=== PATIENT | female | born 1985 | race Caucasian/White ===

== ENCOUNTER 2024-08-14 14:54 | Inpatient (IN) | payer OTHER, SELFPAY ==
--- NOTE | 2024-08-14 14:58 | ED.GENADULT ---
HPI - General Adult General Chief complaint: General Medical Stated complaint: Reaction to new meds Time Seen by Provider: 08/14/24 18:10 Source: patient Mode of arrival: ambulatory Limitations: no limitations History of Present Illness ED Provider: Dr. Jluisa Martinez HPI narrative: Patient comes to the emergency room complaining of worsening anxiety and depression. Patient states that she was being weaned of venlafaxine. Patient states that the last week she was supposed to be taking venlafaxine 25 mg every other day. However, patient kept taking it every day and stopped it abruptly. Patient states that her anxiety and depression have gotten much worse since then. Patient denies SI or HI. However, patient states that she wants to feel better, patient crying. Patient denies hurting herself in any way before coming to the hospital. Related Data Home Medications ?Medication ?Instructions ?Recorded ?Confirmed buspirone 10 mg tablet 20 mg PO TID 08/14/24 08/14/24 clonazepam 0.5 mg tablet 0.5 mg PO BID 08/14/24 08/14/24 lurasidone 20 mg tablet 20 mg PO QPM 08/14/24 08/14/24 Allergies Allergy/AdvReac Type Severity Reaction Status Date / Time doxycycline Allergy Vomiting Verified 08/14/24 15:04 Review of Systems Review of Systems: Constitutional : No Weight loss, No Fever, No Chills, No Night Sweats, No Fatigue, No Malaise ENT/Mouth : No Hearing loss, No Ear Pain, No Nasal Congestion, No Sinus Pain, No Hoarseness, No sore throat, No Rhinorrhea, No Swallowing Difficulty Eyes: No Eye Pain, No Swelling, No Redness, No Foreign Body, No Discharge, No Vision Changes Cardiovascular : No Chest Pain, No SOB, No Dyspnea on Exertion, No Orthopnea, No Edema, No Palpitations Respiratory : No Cough, No Sputum, No Wheezing, No Smoke Exposure, No Dyspnea Gastrointestinal : No Nausea, No Vomiting, No Diarrhea, No Constipation, No abdominal Pain, No Hematochezia, No Melena Genitourinary : no irregular bleeding, No Dysuria, No Urinary Frequency, No Hematuria, No Urinary Incontinence, No Urgency, No Flank Pain, No Urinary Flow Changes, No Hesitancy Musculoskeletal : No joint pain, No Myalgias, No Joint Swelling Skin : No Skin Lesions, No rash Neuro : No Weakness, No Numbness, No Paresthesias, No Loss of Consciousness, No Dizziness, No Headache Psych : Complaining of anxiety and depression No SI/HI/AH/VH, No Social Issues, Heme/Lymph: No Bruising, No Bleeding,No Lymphadenopathy Endocrine : No Polyuria, No Polydipsia, No Temperature Intolerance [facility] Past Medical History Medical History (Updated 08/14/24 @ 20:17 by Julisa Martinez MD) Anxiety and depression Social History Social History Smoked in Last 30 Days: No Use of substances other than those prescribed or required for medical reasons: No Advance Directives: No Advance Directives Information Provided: Yes Do you have a plan to hurt others: No Plan Patient : No Physical Exam ED Vital Signs: Vital Signs - 24 hr 08/14/24 14:59 08/14/24 18:15 Temperature 97.9 F Pulse Rate 101 H 121 H Respiratory Rate 20 19 Blood Pressure 194/119 H 145/104 H Pulse Oximetry 100 98 Oxygen Delivery Method Room Air Room Air BMI result Body Mass Index 48.5 Const Other: Appearance: Alert. Oriented X3. No acute distress. Eyes: Pupils equal, round and reactive to light. ENT: Pharynx normal. Neck: Normal inspection. Neck supple. No lymph nodes noted. No crepitus CVS: Normal heart rate and rhythm. Pulses normal. Normal S1 and S2 Respiratory: No respiratory distress. Breath sounds normal. No Wheezing. No rales Abdomen: Soft and nontender. No rigidity. No distention. Skin: Skin warm and dry. Normal skin color. Normal skin turgor. Extremities: No lower extremity edema. No Lacerations. No Rash Neuro: Oriented X 3. No motor deficit. No sensory deficit. Moving all extremities. No slurred speech. CN 2 through 12 grossly intact Psych: calm, cooperative, cheerful Course Course Course Narrative: This is a rapid medical exam performed by Bhavin Cross NP: Additional HPI, ROS, PE not included below will be deferred to primary provider. Patient is a 39-year- old female presenting to the ED stating that she has been getting weaned off of venlafaxine recently. Then a new doctor took her completely off the venlafaxine and she has been feeling terrible. She feels anxious, spacey, dizzy, has been having nightmares, panic attacks, nausea. Denies suicidal ideation or homicidal ideation. Plan: med clearance, then CARE team eval Medical Decision Making Medical Decision Making [facility] Narrative: My interpretation of labs: No significant abnormality patient's hematology and chemistry, UA negative for UTI, hCG negative, toxicology negative for drugs. Care team evaluated the patient, patient is an inpatient bed search. Patient agrees with plan. Differential Diagnosis Differential Diagnoses: The differential diagnosis associated with the presentation includes (Anxiety, depression) Admission/Observation Consideration of admission/observation: Escalation of care including admission/observation considered (Patient is inpatient bed search) Lab Data [facility] Lab Attestation statement: I reviewed the patient's lab results. 08/14/24 17:32 08/14/24 17:32 Labs: Lab Results 08/14/24 Range/Units 17:32 WBC 9.5 (4.8-10.8) X10*3/uL RBC 4.82 (4.20-5.50) X10*6/uL Hgb 11.5 L (12.0-16.0) g/dl Hct 36.3 L (37.0-47.0) % MCV 75.3 L (80.0-98.0) fL MCH 23.9 L (27.0-33.0) pg MCHC 31.7 (31.0-35.0) g/dl RDW 20.1 H (11.0-16.0) % Plt Count 323 (160-400) X10*3/uL MPV 8.9 L (9.4-12.3) fL Immature Gran % (Auto) 0.3 (0.0-0.4) % Neut % (Auto) 63.9 (45-73) % Lymph % (Auto) 27.1 (20-40) % [place] % (Auto) 5.6 (2-11) % Eos % (Auto) 2.0 (0-4) % Baso % (Auto) 1.1 (0-2) % Lymph # (Auto) 2.6 (1.2-4.9) X10*3/uL [place] # (Auto) 0.5 (0.1-1.2) X10*3/uL Eos # (Auto) 0.2 (0.0-0.4) X10*3/uL Baso # (Auto) 0.1 (0.0-0.2) X10*3/uL Abs Immat Gran (auto) 0.03 (0.00-0.03) X10*3/uL Absolute Neuts (auto) 6.1 (2.0-8.3) x10*3/uL Absolute Nucleated RBC 0.000 (0.0-0.012) X10*3/uL Nucleated RBC % (auto) 0.0 (0.0-0.2) /100WBC Sodium 139 (135-145) mmol/L Potassium 4.1 (3.3-5.1) mmol/L Chloride 107 (96-108) mmol/L Carbon Dioxide 24 (22-29) mmol/L Anion Gap 12 (12-20) BUN 10 (9-16) mg/dL Creatinine 0.76 (0.5-1.4) mg/dL Estim Creat Clear Calc 115.8 Estimated GFR > 60 Random Glucose 115 (60-115) mg/dL Calcium 8.7 (8.4-10.2) mg/dL Total Bilirubin 0.4 (0.0-1.0) mg/dL AST 26 (5-31) U/L ALT 40 H (0-31) U/L Alkaline Phosphatase 74 (39-117) U/L Total Protein 7.6 (6.5-8.0) g/dL Albumin 4.3 (3.5-5.0) g/dL Beta HCG, Quant < 2 mIU/mL Urine Color Yellow Urine Appearance Clear Urine pH 5.5 (5.0-9.0) Ur Specific [place] 1.020 (1.005-1.025) Urine Protein Negative (Neg-Trace) mg/dL Urine Glucose (UA) Negative (Negative) mg/dL Urine Ketones Negative (Negative) mg/dL Urine Blood Negative (Negative) Urine Nitrite Negative (Negative) Ur Leukocyte Esterase Negative (Negative) Urine Opiates Screen Not Detected (Not Detect) Ur Buprenorphine Scrn Not Detected (Not Detect) ng/mL Ur Oxycodone Screen Not Detected (Not Detect) ng/mL Urine Methadone Screen Not Detected (Not Detect) ng/mL Urine Fentanyl Screen Not Detected (Not Detect) Ur Barbiturates Screen Not Detected (Not Detect) Ur Phencyclidine Scrn Not Detected (Not Detect) Ur Amphetamines Screen Not Detected (Not Detect) U Benzodiazepines Scrn Not Detected (Not Detect) Urine Cocaine Screen Not Detected (Not Detect) U Marijuana (THC) Screen Not Detected (Not Detect) Ethyl Alcohol < 10 mg/dL Critical Care Time Critical Care Time Critical Care Time: Yes Total Critical Care Time: 35 Attestation: I have personally provided critical care time. Time includes review of lab data, radiology results, discussion with consultants, and monitoring for potential decompensation. Intervention performed as documented. Discharge Plan Discharge Clinical Impression: Anxiety and depression Patient Disposition: Still a Patient Prescriptions: No Action clonazepam 0.5 mg tablet 0.5 mg PO BID buspirone 10 mg tablet 20 mg PO TID lurasidone 20 mg tablet 20 mg PO QPM Print Language: Faroese
[2024-08-14 14:59] VITALS: BP 194/119; PULSE 101; RESP 20; TEMP 36.6; O2SAT 100; BMI 48.5
--- NOTE | 2024-08-14 15:04 | ECG_ITS ---
Test Reason : LIGHTHEADED Blood Pressure : / mmHG Vent. Rate : 108 BPM Atrial Rate : 108 BPM P-R Int : 154 ms QRS Dur : 082 ms QT Int : 330 ms P-R-T Axes : 039 -15 036 degrees QTc Int : 442 ms Sinus tachycardia Minimal voltage criteria for LVH, may be normal variant ( R in aVL ) Septal infarct , age undetermined Abnormal ECG No previous ECGs available Referred By: Lynn Cross Electronically Signed By:JORGE ALBERTO TRAORE MD
[2024-08-14 17:37] LABS: MANUAL DIFF FLAG NO
[2024-08-14 17:40] LABS: Basophils Absolute Auto 0.1 X10*3/uL (0.0-0.2); Basophils Percent Auto 1.1 % (0-2); Eosinophils Absolute Auto 0.2 X10*3/uL (0.0-0.4); Hematocrit 36.3 % (37.0-47.0); Hemoglobin 11.5 g/dl (12.0-16.0); Imm Gran Abs Auto 0.03 X10*3/uL (0.00-0.03); Imm Gran Pct Auto 0.3 % (0.0-0.4); Lymphocytes Absolute Auto 2.6 X10*3/uL (1.2-4.9); Lymphocytes Percent Auto 27.1 % (20-40); Mean Corpuscular HGB Conc 31.7 g/dl (31.0-35.0); Mean Corpuscular Hemoglobin 23.9 pg (27.0-33.0); Mean Corpuscular Volume 75.3 fL (80.0-98.0); Mean Platelet Volume 8.9 fL (9.4-12.3); Monocytes Absolute Auto 0.5 X10*3/uL (0.1-1.2); Monocytes Percent Auto 5.6 % (2-11); Neutrophils Absolute Auto 6.1 x10*3/uL (2.0-8.3); Neutrophils Percent Auto 63.9 % (45-73); Platelet Count 323 X10*3/uL (160-400); Red Blood Count 4.82 X10*6/uL (4.20-5.50); Red Cell Distribution Width 20.1 % (11.0-16.0); White Blood Count 9.5 X10*3/uL (4.8-10.8)
[2024-08-14 17:41] LABS: Appearance Urine Clear; Color Urine Yellow; Glucose Urine UA Negative (Negative); Leukocyte Esterase Urine Negative (Negative); Nitrite Urine Negative (Negative); PH 5.5 (5.0-9.0); Urine Blood Negative (Negative); Urine Ketones Negative (Negative); Urine Protein Negative (Neg-Trace)
[2024-08-14 17:49] LABS: Amphetamine Screen Urine Not Detected (Not Detect); Barbiturates, Urine Not Detected (Not Detect); Benzodiazepines Screen Urine Not Detected (Not Detect); Buprenorphine Scr Not Detected (Not Detect); Cannabinoid Screen Urine Not Detected (Not Detect); Cocaine Screen Urine Not Detected (Not Detect); Fentanyl, urine Not Detected (Not Detect); Methadone Screen, Urine Not Detected (Not Detect); Opiate Screen Urine Not Detected (Not Detect); Oxycodone Screen Urine Not Detected (Not Detect); Phencyclidine Screen Urine Not Detected (Not Detect)
[2024-08-14 17:54] LABS: Ethanol < 10 mg/dL
[2024-08-14 18:04] LABS: Alanine Aminotransferase 40 U/L (0-31); Albumin Level 4.3 g/dL (3.5-5.0); Alkaline Phosphatase 74 U/L (39-117); Anion Gap 12 (12-20); Aspartate Amino Transferase 26 U/L (5-31); Bilirubin Total 0.4 mg/dL (0.0-1.0); Blood Urea Nitrogen 10 mg/dL (9-16); Calcium 8.7 mg/dL (8.4-10.2); Carbon Dioxide 24 mmol/L (22-29); Chloride 107 mmol/L (96-108); Creatinine Clr Calc Pharmacy 115.8; Estimated Glomerular Filt Rate > 60; Glucose Random 115 mg/dL (60-115); HCG Quantitative < 2 mIU/mL; Potassium 4.1 mmol/L (3.3-5.1); Sodium 139 mmol/L (135-145); Total Protein 7.6 g/dL (6.5-8.0)
[2024-08-14 18:15] VITALS: BP 145/104; PULSE 121; RESP 19; O2SAT 98
--- NOTE | 2024-08-14 20:14 | MHC.CARE ---
Pt was assessed by CARE team, disposition for inpatient psych admit. Pt will be presented for admission.
[2024-08-14 21:02] VITALS: PULSE 105
[2024-08-14 21:04] VITALS: BP 124/87; PULSE 99; RESP 17; TEMP 36.7; O2SAT 97
[2024-08-14] MEDS: clonazePAM 0.5 MG TABLET PO (21:11)
[2024-08-15 00:51] VITALS: BP 144/95; PULSE 101; TEMP 37.2; O2SAT 100
[2024-08-15 00:52] VITALS: BMI 48.1
[2024-08-15] MEDS: hydrOXYzine HCL 25 MG TABLET PO ×3 (02:46→23:20)
--- NOTE | 2024-08-15 04:40 | PC.ADMIT ---
Mckenzie is a 39 year old female, CV, on 15 minutes checks. She recently experienced medication changes; she was to wean off venlaflaxine, but stopped it abruptly and experienced a rapid decompensation that brought her to [facility] ED. She denies SI/HI/AVH. She is anxious and depressed, often tearful during her admission. Her skin/safety check is unremarkable. She does not and has never smoked; she does not drink, and she does not use illicit substances. Her tox screen is negative. She is alert and oriented x3, pleasant, cooperative, ambulatory, and independent with ADLs.
[2024-08-15 08:38] VITALS: BP 146/84; PULSE 101; RESP 16; TEMP 36.7; O2SAT 100
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
[2024-08-15 09:24] LABS: Estimated Average Glucose 126 mg/dL; Hemoglobin A1C 127.0826 umol/L; Total Hemoglobin (HGBA1C) 3013.2162 umol/L
[2024-08-15 09:36] LABS: Alanine Aminotransferase 38 U/L (0-31); Albumin Level 4.4 g/dL (3.5-5.0); Alkaline Phosphatase 73 U/L (39-117); Anion Gap 15 (12-20); Aspartate Amino Transferase 25 U/L (5-31); Bilirubin Total 0.5 mg/dL (0.0-1.0); Blood Urea Nitrogen 11 mg/dL (9-16); Calcium 9.3 mg/dL (8.4-10.2); Carbon Dioxide 23 mmol/L (22-29); Chloride 108 mmol/L (96-108); Cholesterol 249 mg/dL (<200); Creatinine Clr Calc Pharmacy 113.7; Estimated Glomerular Filt Rate > 60; Glucose Random 115 mg/dL (60-115); HDL Cholesterol 50 mg/dL (>40); LDL Cholesterol Calculated 179 mg/dL (<100); Potassium 3.8 mmol/L (3.3-5.1); Sodium 142 mmol/L (135-145); Total Protein 7.5 g/dL (6.5-8.0); Triglycerides 101 mg/dL (<150)
[2024-08-15 09:52] LABS: Thyroid Stimulating Hormone 2.31 uIU/mL (0.32-4.0)
[2024-08-15 10:06] LABS: Folate 13.9 ng/mL (> or = 4.0); Vitamin B12 451 pg/mL (200-900)
[2024-08-15] MEDS: Venlafaxine HCL 25 MG TABLET 12.5 MG PO (14:11)
[2024-08-15] MEDS: Lurasidone HCl 40 MG TABLET PO (18:42)
[2024-08-15 20:00] VITALS: BP 122/81; PULSE 85; TEMP 37.3; O2SAT 99
[2024-08-15] MEDS: LORazepam 0.5 MG TABLET PO (21:50)
[2024-08-16 08:26] VITALS: BP 145/65; PULSE 109; RESP 16; TEMP 36.6; O2SAT 97
[2024-08-16] MEDS: Venlafaxine HCL 25 MG TABLET 12.5 MG PO ×2 (08:32→13:29)
[2024-08-16] MEDS: hydrOXYzine HCL 25 MG TABLET PO (08:33)
--- NOTE | 2024-08-16 10:14 | P.PNPSI_ITS ---
Subjective Subjective Date of Service: 08/16/24 Reason For Visit: Reaction to new meds Subjective Notes: Conditional Voluntary Healthcare Proxy: No Guardianship: No Medical Problems Affecting Mental Status: No Interim History: 39 yo confused by bid effexor as was only 1 x as outpt- reminded her we had changed her to ir not xr and that overall lower dose - so 37.5mg xr before then in snri withdrawl - now getting 12.5mg 2 x day and then can be further lowered- Also lorazepam helpful = but some fatigue- took lorazepam and hydroxyzine last pm for sleep but didn't sleep well- also wanted to know why inc latuda to 40mg- overall appears less anxious and less panicky today- has connected with some other patients We also discussed co-dependence on her fiance Medication Compliance: Yes Side effects from medications: No (but didn't sleep last pm) Attending Groups: Yes Review of Systems Acute medical concerns: No Review of Systems: less snri withdrawl complaints Mental Status Exam Mental Status Exam Patient Appearance: Well Grooomed and Appropriate Patient Orientation: Person, Place, Time and Situation Level of Consciousness: Awake Patient Behavior: Appropriate, Cooperative and Good Eye Contact Mood Description: Anxious Affect Description: Appropriate Patient Cognition Impaired: No Ability to Follow Directions: Good Speech Pattern: Clear Hallucinations: None Thought Process: Intact and Goal Oriented Depressive Symptoms: Insomnia and Difficulty Sleeping Judgement: Fair Diagnostics Vital Signs (24Hr): Vital Signs - 24 hr 08/15/24 20:00 08/16/24 08:26 Temperature 99.2 F 97.8 F Pulse Rate 85 109 H Respiratory Rate 16 Blood Pressure 122/81 145/65 H Pulse Oximetry 99 97 Oxygen Delivery Method Room Air Room Air BMI result Body Mass Index 48.1 Labs 08/14/24 17:32 08/15/24 08:37 Labs: Laboratory Results - last 48 hr 08/14/24 08/15/24 17:32 08:37 WBC 9.5 RBC 4.82 Hgb 11.5 L Hct 36.3 L MCV 75.3 L MCH 23.9 L MCHC 31.7 RDW 20.1 H Plt Count 323 MPV 8.9 L Immature Gran % (Auto) 0.3 Neut % (Auto) 63.9 Lymph % (Auto) 27.1 [place] % (Auto) 5.6 Eos % (Auto) 2.0 Baso % (Auto) 1.1 Lymph # (Auto) 2.6 [place] # (Auto) 0.5 Eos # (Auto) 0.2 Baso # (Auto) 0.1 Abs Immat Gran (auto) 0.03 Absolute Neuts (auto) 6.1 Absolute Nucleated RBC 0.000 Nucleated RBC % (auto) 0.0 Sodium 139 142 Potassium 4.1 3.8 Chloride 107 108 Carbon Dioxide 24 23 Anion Gap 12 15 BUN 10 11 Creatinine 0.76 0.77 Estim Creat Clear Calc 115.8 113.7 Estimated GFR > 60 > 60 Random Glucose 115 115 Estimat Average Glucose 126 Hemoglobin A1c % 6.0 Calcium 8.7 9.3 D Total Bilirubin 0.4 0.5 AST 26 25 ALT 40 H 38 H Alkaline Phosphatase 74 73 Total Protein 7.6 7.5 Albumin 4.3 4.4 Triglycerides 101 Cholesterol 249 H LDL Cholesterol, Calc 179 H HDL Cholesterol 50 Vitamin B12 451 Folate 13.9 TSH 2.31 Beta HCG, Quant < 2 Urine Color Yellow Urine Appearance Clear Urine pH 5.5 Ur Specific [place] 1.020 Urine Protein Negative Urine Glucose (UA) Negative Urine Ketones Negative Urine Blood Negative Urine Nitrite Negative Ur Leukocyte Esterase Negative Urine Opiates Screen Not Detected Ur Buprenorphine Scrn Not Detected Ur Oxycodone Screen Not Detected Urine Methadone Screen Not Detected Urine Fentanyl Screen Not Detected Ur Barbiturates Screen Not Detected Ur Phencyclidine Scrn Not Detected Ur Amphetamines Screen Not Detected U Benzodiazepines Scrn Not Detected Urine Cocaine Screen Not Detected U Marijuana (THC) Screen Not Detected Ethyl Alcohol < 10 Medications Medications Current Medications Acetaminophen (Acetaminophen 325 Mg Tablet) 650 mg PO Q6H PRN PRN Reason: Headache/Pain Mild Scale (1-3) Al Hydroxide/Mg Hydroxide (Magnesium Hydrox/Alum Hydrox 30 Ml Oral.Susp) 30 ml PO Q6H PRN PRN Reason: Heartburn/Nausea Hydroxyzine HCl (Hydroxyzine Hcl 25 Mg Tablet) 25 mg PO Q4H PRN PRN Reason: Anxiety Last Admin: 08/16/24 08:33 Dose: 25 mg Lorazepam (Lorazepam 0.5 Mg Tablet) 0.5 mg PO TID PRN PRN Reason: anxiety/restlessness Last Admin: 08/15/24 21:50 Dose: 0.5 mg Lurasidone HCl (Lurasidone Hcl 40 Mg Tablet) 40 mg PO DAILY@1800 TIERRA Last Admin: 08/15/24 18:42 Dose: 40 mg Magnesium Hydroxide (Milk Of Magnesia 30 Ml Oral.Susp) 30 ml PO DAILY PRN PRN Reason: Constipation Venlafaxine HCl (Venlafaxine Hcl 25 Mg Tablet) 12.5 mg PO BID@0830,1330 [facility] Last Admin: 08/16/24 08:32 Dose: 12.5 mg Allergies Allergies Allergy/AdvReac Type Severity Reaction Status Date / Time doxycycline Allergy Vomiting Verified 08/14/24 15:04 Assessment & Plan Assessment & Plan (1) Post traumatic stress disorder: Status: Acute Code(s): F43.10 - Post-traumatic stress disorder, unspecified (2) Panic disorder: Status: Acute Code(s): F41.0 - Panic disorder [episodic paroxysmal anxiety] (3) Medication adverse effect: Status: Acute Code(s): T50.905A - Adverse effect of unspecified drugs, medicaments and biological substances, initial encounter Assessment and Plan: SNRI withdrawal Plan 08/15/24 - discussed with pt dc clonazepam and try lorazepam prn in past tried 1mg which was too fatiguing- continue buspar, continue latuda 20mg and go back to effexor but only to continue taper- apparently her insurance [email or web address] would not approve or needed PA for trial of villazadone which might be alternative- suspect main issues is PTSD complex and codependence with current fiance as well as snri withdrawal- 08/16/24 discussed inc hydroxyzine at bed to 50mg otherwise continue current and further decisions can be made tomorrow about changing effexor ir out to other ? - also buspar got dropped from rec so it was added back into regimen- Patient educated on: diagnosis, medication risk/benefits and therapeutic strategies Informed Consent: understands and further education needed Reason for continued inpatient stay Substantial Risk for: rapid decompensation Time Spent With Patient Time: Total time managing care of this patient today ____ minutes.
[2024-08-16] MEDS: busPIRone HCl 10 MG TABLET 20 MG PO ×3 (10:58→21:13)
[2024-08-16] MEDS: Lurasidone HCl 40 MG TABLET PO (18:24)
[2024-08-16 20:00] VITALS: BP 148/87; PULSE 104; RESP 18; TEMP 36.6; O2SAT 96
[2024-08-16] MEDS: hydrOXYzine HCL 50 MG TABLET PO (21:14)
[2024-08-17 08:00] VITALS: BP 134/92; PULSE 91; TEMP 36.8; O2SAT 99
[2024-08-17] MEDS: busPIRone HCl 10 MG TABLET 20 MG PO ×3 (08:16→20:50)
[2024-08-17] MEDS: Venlafaxine HCL 25 MG TABLET 12.5 MG PO ×2 (08:17→14:22)
--- NOTE | 2024-08-17 15:05 | HO.PSYCHPN ---
Subjective Subjective Date of Service: 08/17/24 Reason For Visit: Reaction to new meds Subjective Notes: Conditional Voluntary Interim History: Active on unit. Patient reports feeling anxious d/t adjusting to being on an inpatient unit ; she reports improved mood since admission. Pt stated, I don't feel like I need inpatient. I would like to leave soon and maybe do partial . denies SI/HI/VH/AH. Patient reports she sees her outpatient therapist every Saturday. Medication Compliance: Yes Side effects from medications: No Attending Groups: Yes Review of Systems Constitutional: Reports as per HPI Eyes: Reports as per HPI Reports as per HPI Cardiovascular: Reports as per HPI Respiratory: Reports as per HPI Gastrointestinal: Reports as per HPI Genitourinary: Reports as per HPI Musculoskeletal: Reports as per HPI Skin/Breast: Reports as per HPI Reports as per HPI Psychiatric: Reports as per HPI Endocrine: Reports as per HPI Hematologic/Lymphatic: Reports as per HPI Allergic/Immunologic: Reports as per HPI Mental Status Exam Mental Status Exam Patient Appearance: Well Grooomed Patient Orientation: Person, Place, Time and Situation Level of Consciousness: Awake and Alert Patient Behavior: Appropriate, Cooperative, Anxious and Good Eye Contact Mood Description: Anxious Affect Description: Anxious Ability to Follow Directions: Good Speech Pattern: Clear and Appropriate Memory Description: Intact Hallucinations: None Delusions: Not Present Thought Process: Intact and Goal Oriented Thought Content: positive for Intact and positive for Goal Oriented Judgement: Fair Diagnostics Vital Signs (24Hr): Vital Signs - 24 hr 08/16/24 20:00 08/17/24 08:00 Temperature 97.8 F 98.3 F Pulse Rate 104 H 91 Respiratory Rate 18 Blood Pressure 148/87 H 134/92 H Pulse Oximetry 96 99 Oxygen Delivery Method Room Air Room Air BMI result Body Mass Index 48.1 Labs 08/14/24 17:32 08/15/24 08:37 Medications Medications Current Medications Acetaminophen (Acetaminophen 325 Mg Tablet) 650 mg PO Q6H PRN PRN Reason: Headache/Pain Mild Scale (1-3) Al Hydroxide/Mg Hydroxide (Magnesium Hydrox/Alum Hydrox 30 Ml Oral.Susp) 30 ml PO Q6H PRN PRN Reason: Heartburn/Nausea Buspirone HCl (Buspirone Hcl 10 Mg Tablet) 20 mg PO TID [facility] Last Admin: 08/17/24 14:22 Dose: 20 mg Hydroxyzine HCl (Hydroxyzine Hcl 25 Mg Tablet) 25 mg PO Q4H PRN PRN Reason: Anxiety Last Admin: 08/16/24 08:33 Dose: 25 mg Hydroxyzine HCl (Hydroxyzine Hcl 50 Mg Tablet) 50 mg PO BEDTIME PRN PRN Reason: Insomnia Last Admin: 08/16/24 21:14 Dose: 50 mg Lorazepam (Lorazepam 0.5 Mg Tablet) 0.5 mg PO TID PRN PRN Reason: anxiety/restlessness Last Admin: 08/15/24 21:50 Dose: 0.5 mg Lurasidone HCl (Lurasidone Hcl 40 Mg Tablet) 40 mg PO DAILY@1800 [facility] Last Admin: 08/16/24 18:24 Dose: 40 mg Magnesium Hydroxide (Milk Of Magnesia 30 Ml Oral.Susp) 30 ml PO DAILY PRN PRN Reason: Constipation Ondansetron HCl (Ondansetron Odt 4 Mg Tab.Rapdis) 4 mg TRANSLINGU DAILY PRN PRN Reason: Nausea and Vomiting Venlafaxine HCl (Venlafaxine Hcl 25 Mg Tablet) 12.5 mg PO BID@0830,1330 [facility] Last Admin: 08/17/24 14:22 Dose: 12.5 mg Allergies Allergies Allergy/AdvReac Type Severity Reaction Status Date / Time doxycycline Allergy Vomiting Verified 08/14/24 15:04 Assessment & Plan Assessment & Plan (1) Post traumatic stress disorder: Status: Acute Code(s): F43.10 - Post-traumatic stress disorder, unspecified (2) Panic disorder: Status: Acute Code(s): F41.0 - Panic disorder [episodic paroxysmal anxiety] (3) Medication adverse effect: Status: Acute Code(s): T50.905A - Adverse effect of unspecified drugs, medicaments and biological substances, initial encounter Assessment and Plan: SNRI withdrawal Plan 08/15/24 - discussed with pt dc clonazepam and try lorazepam prn in past tried 1mg which was too fatiguing- continue buspar, continue latuda 20mg and go back to effexor but only to continue taper- apparently her insurance [employer] would not approve or needed PA for trial of villazadone which might be alternative- suspect main issues is PTSD complex and codependence with current fiance as well as snri withdrawal- 08/16/24 discussed inc hydroxyzine at bed to 50mg otherwise continue current and further decisions can be made tomorrow about changing effexor ir out to other ? - also buspar got dropped from rec so it was added back into regimen- 08/17: continue current tx plan. Patient educated on: diagnosis and medication risk/benefits Reason for continued inpatient stay Substantial Risk for: med/psych decompensation Time Spent With Patient Time: Total time managing care of this patient today _20___ minutes.
[2024-08-17] MEDS: Lurasidone HCl 40 MG TABLET PO (17:58)
[2024-08-17] MEDS: hydrOXYzine HCL 50 MG TABLET PO (20:51)
[2024-08-18 08:00] VITALS: BP 159/87; PULSE 99; RESP 16; TEMP 36.5; O2SAT 99
[2024-08-18] MEDS: hydrOXYzine HCL 25 MG TABLET PO (08:58)
[2024-08-18] MEDS: busPIRone HCl 10 MG TABLET 20 MG PO ×3 (08:58→20:47)
[2024-08-18] MEDS: Venlafaxine HCL 25 MG TABLET 12.5 MG PO ×2 (08:58→15:04)
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
[2024-08-18] MEDS: Lurasidone HCl 40 MG TABLET PO (17:21)
--- NOTE | 2024-08-18 18:09 | PM.EVENT ---
Event Note Date of Service: 08/18/24 Event Note: The patient was seen and evaluated for lip rash likely representing angular cheilitis. Advised to increase fluids intake and remains well hydrated. use lip balm and apply triple Abx ointment for the next few days. Time Spent With Patient Time: Total time managing care of this patient today ____ minutes.
[2024-08-18 19:38] VITALS: BP 146/91; PULSE 96; TEMP 36.4; O2SAT 98
[2024-08-18] MEDS: LORazepam 0.5 MG TABLET PO (20:47)
[2024-08-18] MEDS: hydrOXYzine HCL 50 MG TABLET PO (20:47)
[2024-08-18] MEDS: NeoMY/Polymyx/Bacit/Ointment 14 GM Tube TOPICAL (20:57)
--- NOTE | 2024-08-19 | ECG_ITS ---
Test Reason : Follow up EKG from abn read on admit Blood Pressure : */* mmHG Vent. Rate : 88 BPM Atrial Rate : 88 BPM P-R Int : 130 ms QRS Dur : 84 ms QT Int : 292 ms P-R-T Axes : 49 -6 45 degrees QTcB Int : 353 ms Artifact in tracing Normal sinus rhythm Minimal voltage criteria for LVH, may be normal variant ( R in aVL ) Borderline ECG When compared with ECG of 14-Aug-2024 17:33, No significant changes seen Referred By: Sarita Hall Electronically Signed By: CLAUDIA SNOW
[2024-08-19 08:00] VITALS: BP 131/65; PULSE 92; RESP 16; TEMP 36.6; O2SAT 100
[2024-08-19] MEDS: Venlafaxine HCL 25 MG TABLET 12.5 MG PO (08:28)
[2024-08-19] MEDS: busPIRone HCl 10 MG TABLET 20 MG PO (08:29)
[2024-08-19] MEDS: hydrOXYzine HCL 25 MG TABLET PO (08:29)
[2024-08-19] MEDS: NeoMY/Polymyx/Bacit/Ointment 14 GM Tube TOPICAL (08:58)
--- NOTE | 2024-08-19 10:20 | P.DS_ITS ---
DS: Providers Provider Date of admission: 08/14/24 21:15 Primary care physician: SIRI Wallace Consults: 08/18/24 13:30 Consult to Hospitalist Routine Comment: Consulting Provider: [facility] Hospitalists Reason For Exam: rash, right lip commisure, left lower lip ?impetig DS: Diagnosis Discharge Diagnosis (1) Post traumatic stress disorder: Status: Acute (2) Panic disorder: Status: Acute (3) Medication adverse effect: Status: Acute DS: Medications Discharge Medications Home Medications: Previous Rx's ?Medication ?Instructions ?Recorded buspirone 10 mg tablet 20 mg (2 x 10 mg) PO TID #180 tabs 08/19/24 clonazepam 0.5 mg tablet 0.5 mg PO BID #14 tabs 08/19/24 hydroxyzine HCl 25 mg tablet 25 mg PO Q4H PRN Anxiety #15 tabs 08/19/24 lurasidone 40 mg tablet (Latuda) 40 mg PO DAILY@1800 #30 tabs 08/19/24 neomycin-bacitracn Zn-polymyx 3.5 1 g topical BID #14 grams 08/19/24 mg-400 unit-5,000 unit/gram top oint (Triple Antibiotic) venlafaxine 25 mg tablet 12.5 mg (1/2 x 25 mg) PO 08/19/24 BID@0830,1330 #14 tabs Data Data Completed and Pending Completed studies during hospitalization [Text1]: 08/14/24 08/15/24 17:32 08:37 WBC 9.5 RBC 4.82 Hgb 11.5 L Hct 36.3 L MCV 75.3 L MCH 23.9 L MCHC 31.7 RDW 20.1 H Plt Count 323 MPV 8.9 L Immature Gran % (Auto) 0.3 Neut % (Auto) 63.9 Lymph % (Auto) 27.1 Steele % (Auto) 5.6 Eos % (Auto) 2.0 Baso % (Auto) 1.1 Lymph # (Auto) 2.6 Steele # (Auto) 0.5 Eos # (Auto) 0.2 Baso # (Auto) 0.1 Abs Immat Gran (auto) 0.03 Absolute Neuts (auto) 6.1 Absolute Nucleated RBC 0.000 Nucleated RBC % (auto) 0.0 Sodium 139 142 Potassium 4.1 3.8 Chloride 107 108 Carbon Dioxide 24 23 Anion Gap 12 15 BUN 10 11 Creatinine 0.76 0.77 Estim Creat Clear Calc 115.8 113.7 Estimated GFR > 60 > 60 Random Glucose 115 115 Estimat Average Glucose 126 Hemoglobin A1c % 6.0 Calcium 8.7 9.3 D Total Bilirubin 0.4 0.5 AST 26 25 ALT 40 H 38 H Alkaline Phosphatase 74 73 Total Protein 7.6 7.5 Albumin 4.3 4.4 Triglycerides 101 Cholesterol 249 H LDL Cholesterol, Calc 179 H HDL Cholesterol 50 Vitamin B12 451 Folate 13.9 TSH 2.31 Beta HCG, Quant < 2 Urine Color Yellow Urine Appearance Clear Urine pH 5.5 Ur Specific [place] 1.020 Urine Protein Negative Urine Glucose (UA) Negative Urine Ketones Negative Urine Blood Negative Urine Nitrite Negative Ur Leukocyte Esterase Negative Urine Opiates Screen Not Detected Ur Buprenorphine Scrn Not Detected Ur Oxycodone Screen Not Detected Urine Methadone Screen Not Detected Urine Fentanyl Screen Not Detected Ur Barbiturates Screen Not Detected Ur Phencyclidine Scrn Not Detected Ur Amphetamines Screen Not Detected U Benzodiazepines Scrn Not Detected Urine Cocaine Screen Not Detected U Marijuana (THC) Screen Not Detected Ethyl Alcohol < 10 DS: Summary Time Spent with Patient Time attestation: Total time managing care of this patient today ____ minutes. Discharge Plan Discharge Anticipated Discharge Date/Time: 08/19/24 12:00 Patient Disposition: Home, Self-Care Discharge Diagnosis: Recurrent Major Depression Panic Disorder PTSD Referrals: [facility]'s Partial Hospitalization Program Intake [Other] - 08/26/24 11:00 am ([facility] is located near the [facility], when you enter the main entrance to the hospital you will follow the road up and around the [facility]. Please follow the signage for [facility] ) [facility]-Therapy [Other] - 08/24/24 11:00 am (Intake appointment is with Antonietta Enamorado. Please arrive 15 minutes prior to your scheduled appointment time to complete initial intake paperwork ) [facility]- Psychiatric Evaluation [Other] - 09/15/24 8:20 am (Telehealth appointment with Mayito Perez, this appointment will be approximately 1 hour ) [facility]- Medication Management [Other] - 10/13/24 9:00 am (This appointment will be 20 minutes with Mayito Perez and will be telehealth ) Comfrey,Little M, CLERICAL ASSISTANT [Primary Care Provider] - 1 Week Discharge Medications: New Triple Antibiotic 3.5mg-400 unit- 5,000 unit/gram Ointment 1 g topical BID Qty: 14 0RF Protocol: Apply to: Apply to: commissure of mouth venlafaxine 25 mg Tablet 12.5 mg PO BID@0830,1330 Qty: 14 0RF hydroxyzine HCl 25 mg Tablet 25 mg PO Q4H PRN (Reason: Anxiety) Qty: 15 0RF lurasidone [Latuda] 40 mg Tablet 40 mg PO DAILY@1800 Qty: 30 0RF Continued clonazepam 0.5 mg tablet 0.5 mg PO BID Qty: 14 4RF buspirone 10 mg tablet 20 mg PO TID Qty: 180 0RF Discontinued lurasidone 20 mg tablet 20 mg PO QPM Discharge Orders: Discharge Order (Routine); Ordered 08/19/24 Ordered By: Sarita Hall Diet: Advance to usual diet Activity on Discharge: As tolerated Stand Alone Forms: Patient Portal Discharge page, Community Support Print Language: Azerbaijani Care Plan Goals: Mood and Behavioral Stabilization Health Concerns: Mood and Behavioral Stabilization Plan of Treatment: Attend scheduled appointments Take medications as directed Effexor tapering. 12. 5 mg twice daily, 08/19/24 to 08/26/24. 12.5 mg daily 08/27/24 to 09/02/24. 12.5 mg every other day 09/03/24 to 09/17/24 then discontinue. Assessment: No SI/HI/AH/VH No acute sx of olesya, psychosis Pt is in agreement with plan of care.
== END 2024-08-19 11:07 | disposition home or self-care (01) | DRG 776 ==
LOC: HO.ED 20:17 → HO.PM5 08-15 00:08
PROVIDERS: Registered Nurse Emergency; Admitting Provider Social Worker; Emergency Provider Emergency Medicine; PCP Nurse Practitioner Acute Care; Visit Provider Clinical Nurse Specialist Psychiatric/Mental Health, Adult
DX: F19.939 Other psychoactive substance use, unspecified with withdrawal, unspecified (principal); E66.9 Obesity, unspecified; Z68.42 Body mass index [BMI] 45.0-49.9, adult; F41.0 Panic disorder [episodic paroxysmal anxiety]; F43.10 Post-traumatic stress disorder, unspecified; Z91.148 Patient's other noncompliance with medication regimen for other reason; Z79.899 Other long term (current) drug therapy
CPT/HCPCS: 36415; 80053; 80061; 80307; 81003; 82607; 82746; 83036; 84443; 84702; 85025; 93005; 99285

== ENCOUNTER → 2024-08-14 15:04 | Outpatient (BNV) | payer OTHER, SELFPAY | PROVIDERS: Admitting Provider Social Worker; Emergency Provider Emergency Medicine; PCP Nurse Practitioner Acute Care; Visit Provider Internal Medicine Cardiovascular Disease | DX: R94.31 Abnormal electrocardiogram [ECG] [EKG] (principal) | CPT/HCPCS: 93010 ==

== ENCOUNTER 2024-08-14 21:15 | Outpatient (BNV) | payer OTHER, SELFPAY | END 2024-08-19 10:42 | PROVIDERS: Admitting Provider Social Worker; Emergency Provider Emergency Medicine; PCP Nurse Practitioner Acute Care; Visit Provider Internal Medicine | DX: R94.31 Abnormal electrocardiogram [ECG] [EKG] (principal) | CPT/HCPCS: 93010 ==

== ENCOUNTER → 2024-08-14 21:15 | Outpatient (BNV) | payer OTHER, SELFPAY | PROVIDERS: Admitting Provider Social Worker; Emergency Provider Emergency Medicine; PCP Nurse Practitioner Acute Care; Visit Provider Registered Nurse | DX: F43.11 Post-traumatic stress disorder, acute (principal); F41.0 Panic disorder [episodic paroxysmal anxiety]; T50.905A Adverse effect of unspecified drugs, medicaments and biological substances, initial encounter | CPT/HCPCS: 99231; 99232 ==

== ENCOUNTER 2024-09-02 13:15 | Outpatient (RCR) | payer OTHER, SELFPAY ==
[2024-08-27 11:19] VITALS: BP 124/78; PULSE 80; TEMP 36.9
[2024-08-27 11:22] VITALS: BMI 47.1
--- NOTE | 2024-08-27 12:16 | PC.ADMIT ---
Patient is a 39 year old female who was referred to [facility] by [facility] inpatient unit where she was admitted from 08/12-08/19/24. Prior to hospitalization patient self presented to [facility] ER secondary to physical complaints related to medication changes along with increased anxiety with panic attacks. Patient reports prior to hospitalization she told this narrative writer she decided she no longer wanted to be on Venlafaxine as she missed a dose for one day and the next day she felt sick all day. She reports this frightened her. She also stated her counselor suggested she have gene testing done. She stated when she got the results back of the gene testing she noticed Venlafaxine was in the yellow and thus wanted to stop the medication. She reports other medications that she has been on before were in the yellow as well and she was not able to tolerate those medications. She reports having a difficult time with being on medications and that she is sensitive to medications. She also report having difficulty when tapering off Venlafaxine and not feeling well. She reports she is almost finnished with the Venlafaxine taper. Patient currently has a job working at [employer] but reports she has not been able to work for the last couple of weeks d/t mental health symptoms. Patient is alert and oriented x4. Calm and cooperative. She presented with anxious mood with congruent affect. She wants to work on decreasing anxiety and panic while in the program and being able to function better as a result. She denied SI. No HI. She was given a copy of her safety plan if needed. Medications reconciled with patient and patient's discharge paperwork. Patient reports she decreased Latuda back to 20 mg d/t increased anxiety. Medication education provided. Patient denied any history of substance use.
--- NOTE | 2024-08-27 15:37 | PHP/IOPCOSI ---
Pt's case has been opened and reviewed in treatment team.
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
--- NOTE | 2024-09-01 13:31 | PC.NURSE ---
Patient told staff that she did not get new prescriptions for Hydroxyzine and Diphenhydramine. I called the pharmacy who stated they will fill Diphenhydramine. Pharmacy stated that patient has an allergy to Hydroxyzine-fast HR. Dr. Barrett aware. D/c Hydroxyzine.
--- NOTE | 2024-09-07 08:52 | HO.PHP ---
Mckenzie's boyfriend contacted the program to inform the team that she will not be in attendance to program due to being sick. A staff member will be reaching out to Mckenzie to complete the discharge paperwork since this was her third call out from program.
== END 2024-09-02 23:59 | disposition home or self-care (01) ==
LOC: HO.PHPA 13:15
PROVIDERS: Visit Provider Psychiatry & Neurology Psychiatry
DX: F41.0 Panic disorder [episodic paroxysmal anxiety] (principal); F43.10 Post-traumatic stress disorder, unspecified; F32.A Depression, unspecified; F48.8 Other specified nonpsychotic mental disorders; Z79.899 Other long term (current) drug therapy
CPT/HCPCS: 90791; 90853

== ENCOUNTER → 2024-09-02 13:15 | Outpatient (BNV) | payer OTHER, SELFPAY | PROVIDERS: Visit Provider Psychiatry & Neurology Psychiatry | DX: F41.0 Panic disorder [episodic paroxysmal anxiety] (principal); F43.10 Post-traumatic stress disorder, unspecified; F41.9 Anxiety disorder, unspecified; F32.A Depression, unspecified; F48.8 Other specified nonpsychotic mental disorders | CPT/HCPCS: 90792 ==